=== PATIENT | male | born 1960 | race Caucasian/White ===

== ENCOUNTER 2016-11-16 20:07 | Inpatient (IN) | payer OTHER ==
[~2016-11-16] VITALS: Ht 175.3 cm; Wt 134.2 kg
[~2016-11-16 20:07] MED LIST: ADVIL200 MG PO; AMITRIPTYLINE150 MG PO; ASPIRIN E.C.81 M1 PO; ASPIRIN325 MG PO; ASPIRIN81 M1 PO; BACTRIM,SEPT1 TABLET PO; BENAZEPRIL HCL5 MG PO; CYANOCOBALAM1000 MCG PO; DILAUDID2 MG PO; ELAVIL100 MG PO; FENOFIBRATE160 M1 PO; FIBERCON625 MG PO; FISH OIL 1,0001 EAC7 PO; FISH OIL 1,0001 EAC8 PO; FISH OIL 1,0001 EACH PO; FISH OIL500 MG PO; GLIPIZIDE5 MG PO; GLYBURIDE MICRON3 MG PO; IBUPROFEN400 MG PO; KEFLEX500 MG PO; KEPPRA750 MG PO; LIDODERM 5% P1 PATCH TD; LIPITOR40 MG PO; LO-DOSE ASPIRIN81 M1 PO; LOPRESSOR25 MG PO; LYRICA150 MG PO; LYRICA300 MG PO; Lipitor PO; METAMUCIL FIBE3.4 GM PO; METAMUCIL POWD798 GM PO; MOTRIN600 MG PO; MOTRIN800 MG PO; MULTIVITAMIN1 EAC1 PO; MULTIVITAMIN1 EAC2 PO; NEXIUM40 MG PO; NITROSTAT0.4 MG SL; NORCO 5/3251 TABLET PO; Omega III EPA + DHA PO; PAROXETINE HCL20 MG PO; PAXIL20 MG PO; PEPTO BISMOL262 MG PO; PERCOCET 5/31 TABLET PO; PLAVIX75 MG PO; PRAVACHOL40 MG PO; PRAVASTATIN SOD40 MG PO; RANITIDINE HCL150 MG PO; Remove Lidoderm Patc TD; SAVELLA100 MG PO; SKELAXIN800 MG PO; TRICOR145 MG PO; TYLENOL 8 HOUR650 MG PO; VALIUM10 MG PO; VITAMIN B-121000 MCG PO; VITAMIN B12-FO1 EACH PO; Valium PO; ZANTAC150 MG PO; ZOCOR80 MG PO
[2016-11-16 20:49] LABS: EOSINOPHIL COUNT 0.1 K/uL (0-0.3); HEMATOCRIT 43.8 % (38.0-50.0); IMMATURE GRANULOCYTE (%) 0.3 % (0.0-0.7); INSTRUMENT ABS NEUTROPHIL CT 4.1 K/uL; LYMPHOCYTE COUNT 2.5 K/uL (1.0-2.8); MCH 29.4 PG (29.0-34.0); MCHC 33.3 G/DL (30.0-36.0); MCV 88.1 FL (86-99); MONOCYTE (%) 7.7 % (3-12); MONOCYTE COUNT 0.6 K/uL (0-0.8); NEUTROPHIL (%) 56.6 % (45-76); NEUTROPHIL COUNT 4.1 K/uL (1.8-6.4); RBC DIS.WIDTH-CV 12.9 % (11.8-14.6); RBC DIS.WIDTH-SD 41.4 % (39-53); RED BLOOD COUNT 4.97 M/uL (4.00-5.50); WHITE BLOOD COUNT 7.3 K/uL (4.1-10.2)
[2016-11-16 20:57] LABS: CHLORIDE 99 mEq/L (99-109); POTASSIUM 3.8 mEq/L (3.7-5.4); SODIUM 135 mEq/L (136-147)
[2016-11-16 20:58] LABS: GLUCOSE 278 mg/dL (70-99)
[2016-11-16 21:00] LABS: ANION GAP 13 MEQ/L (2-14)
[2016-11-16 21:02] LABS: GFR ESTIMATE (CALCULATED) > 59 mL/min/
[2016-11-16 21:03] LABS: UREA NITROGEN (BUN) 13 mg/dL (9-23)
[2016-11-16 21:10] LABS: TROP-I INTERPRETATION NEGATIVE; TROPONIN-I < 0.01 ng/mL (0.0-0.30)
[2016-11-16 21:59] LABS: MEAN PLAT.VOLUME 10.7 uM^3 (9.0-12.4); PLAT.SUFFICIENCY ADEQUATE; PLATELET COUNT 165 K/uL (156-360)
[2016-11-16] MEDS ORDERED: GLUCOTROL10 MG PO (22:03)
[2016-11-16] MEDS ORDERED: JANUVIA100 MG PO (22:06)
[2016-11-17 03:17] LABS: TROP-I INTERPRETATION NEGATIVE; TROPONIN-I < 0.01 ng/mL (0.0-0.30)
[2016-11-17 03:28] VITALS: BP 136/70
[2016-11-17 03:29] LABS: HDL CHOLESTEROL 37 MG/DL (Desirable>=40); NON-HDL CHOLESTEROL 109 mg/dL (Desirable<160); TOTAL CHOLESTEROL 146 mg/dL (Desirable<200); TRIGLYCERIDES 413 MG/DL (Normal: <150)
[2016-11-17 06:51] LABS: Estimated Average Glucose 286 mg/dL (70-123); HEMOGLOBIN A1c (GLYCOHEMOGLOB) 11.6 % HGB (Below 5.7)
[2016-11-17 09:00] VITALS: BP 154/84
[2016-11-17 09:48] LABS: TROP-I INTERPRETATION NEGATIVE; TROPONIN-I < 0.01 ng/mL (0.0-0.30)
[2016-11-17 10:43] LABS: C-REACTIVE PROTEIN 8.2 MG/L (0-10)
[2016-11-17 11:39] VITALS: BP 134/65
[2016-11-17 12:33] LABS: POINT-OF-CARE METER ID UU13113700
[2016-11-17 16:10] VITALS: BP 137/70
[2016-11-17 18:02] LABS: POINT-OF-CARE METER ID UU13113700
[2016-11-17 20:00] VITALS: BP 126/58
[2016-11-17 21:47] LABS: POINT-OF-CARE METER ID UU13113700
[2016-11-18 04:08] VITALS: BP 102/51
[2016-11-18 05:17] LABS: HEMATOCRIT 41.9 % (38.0-50.0); MCH 30.2 PG (29.0-34.0); MCHC 34.6 G/DL (30.0-36.0); MCV 87.3 FL (86-99); MEAN PLAT.VOLUME 10.1 uM^3 (9.0-12.4); PLATELET COUNT 185 K/uL (156-360); RBC DIS.WIDTH-CV 12.5 % (11.8-14.6); RBC DIS.WIDTH-SD 39.6 % (39-53); WHITE BLOOD COUNT 12.1 K/uL (4.1-10.2)
[2016-11-18 06:03] LABS: ANION GAP 11 MEQ/L (2-14); CHLORIDE 101 MEQ/L (99-109); GFR ESTIMATE (CALCULATED) > 59 mL/min/; GLUCOSE 195 mg/dL (70-99); POTASSIUM 4.2 MEQ/L (3.7-5.4); SAMPLE HEMOLYSIS CHECK 0; SAMPLE ICTERIC CHECK 0; SAMPLE LIPEMIA CHECK 0; SODIUM 138 MEQ/L (136-147); UREA NITROGEN (BUN) 18 mg/dL (9-23)
[2016-11-18 07:30] VITALS: BP 140/71
[2016-11-18 07:39] LABS: POINT-OF-CARE METER ID UU13113700
[2016-11-18 11:38] VITALS: BP 107/57
[2016-11-18 11:43] LABS: POINT-OF-CARE METER ID UU13113831
[2016-11-18] MEDS ORDERED: LEVEMIR100 UNIT/2 SC (13:38)
== END 2016-11-18 14:47 | disposition home or self-care (01) | DRG 638 ==
LOC: EME → EDBD 20:07 → EME 20:07 → EDOF 11-17 02:13 → 5WEST 11-17 02:13 → EDOF 11-17 02:13 → ENRESERV 11-17 02:14 → 5WEST 11-17 03:02 → ENRESERV 11-17 21:32 → 5WEST 11-18 14:47
PROVIDERS: Emergency Medicine; Hospitalist; Physician Assistant Medical
DX: E11.65 Type 2 diabetes mellitus with hyperglycemia (principal); I69.354 Hemiplegia and hemiparesis following cerebral infarction affecting left non-dominant side; F33.9 Major depressive disorder, recurrent, unspecified; Z68.41 Body mass index [BMI] 40.0-44.9, adult; E66.01 Morbid (severe) obesity due to excess calories; E78.5 Hyperlipidemia, unspecified; I10 Essential (primary) hypertension; K21.9 Gastro-esophageal reflux disease without esophagitis; G40.909 Epilepsy, unspecified, not intractable, without status epilepticus; G93.89 Other specified disorders of brain; M48.02 Spinal stenosis, cervical region; F17.220 Nicotine dependence, chewing tobacco, uncomplicated; Z79.82 Long term (current) use of aspirin; Z79.84 Long term (current) use of oral hypoglycemic drugs; Z86.718 Personal history of other venous thrombosis and embolism; Z79.4 Long term (current) use of insulin
CPT/HCPCS: 70496; 70498; 70540; 71010; 71275; 80048; 80061; 82948; 83036; 84484; 85025; 85027; 85651; 86140; 93005; 94799; 99281; 99285; J1200; J1644; J1815; J1885; J7512